=== PATIENT | female | born 1955 | race Caucasian/White ===

== ENCOUNTER 2020-01-01 11:51 | Outpatient (CLI) | payer BC ==
[2020-01-01] MEDS ORDERED: IOVERSOL 320 100 ML VIAL IVP ONE (12:13)
[2020-01-01] MEDS ORDERED: IOVERSOL 320 50 ML VIAL ONE (12:13)
[2020-01-01 12:40] LABS: BASOPHILS % (AUTO) 0.5 %; EOSINOPHILS # (AUTO) 0.3 10^3/uL (0.0-0.7); EOSINOPHILS % (AUTO) 3.3 %; HGB - HEMOGLOBIN 12.9 g/dL (12.0-16.0); LYMPHOCYTES # (AUTO) 1.2 10^3/uL (1.5-3.5); LYMPHOCYTES % (AUTO) 15.8 %; MEAN CORPUSCULAR HEMOGLOBIN 32.3 pg (27.0-31.0); MEAN CORPUSCULAR HGB CONC 33.2 g/dL (32.0-36.0); MEAN CORPUSCULAR VOLUME 97.2 fL (81.0-99.0); MEAN PLATELET VOLUME 8.6 fL (7.9-10.8); MONOCYTES # (AUTO) 0.6 10^3/uL (0.0-1.0); MONOCYTES % (AUTO) 7.5 %; NEUTROPHILS # (AUTO) 5.7 10^3/uL (1.5-6.6); NEUTROPHILS % (AUTO) 72.6 %; PLT - PLATELET COUNT 233 10^3/uL (130-450); RED BLOOD COUNT 3.99 10^6/uL (4.20-5.40); RED CELL DISTRIBUTION WIDTH 13.2 % (12.0-15.0); WHITE BLOOD COUNT 7.8 x10^3/uL (4.8-10.8)
[2020-01-01 12:53] LABS: ALBUMIN 4.3 g/dL (3.2-5.5); ALBUMIN/GLOBULIN RATIO 1.8 (1.0-2.2); BILIRUBIN,TOTAL 0.7 mg/dL (0.2-1.0); CALCIUM 8.7 mg/dL (8.5-10.3); CREATININE 0.9 mg/dL (0.4-1.0); TOTAL PROTEIN 6.7 g/dL (6.7-8.2)
--- NOTE | 2020-01-01 14:02 | CT Report ---
PROCEDURE: Abdomen/Pelvis W INDICATIONS: ABD PAIN, LLQ CONTRAST: IV CONTRAST: Optiray 320 ml: 100 PO CONTRAST: Optiray 320 ml50 TECHNIQUE: After the administration of oral and intravenous contrast, 5 mm thick sections acquired from the diap hragms to the symphysis. 5 mm thick coronal and sagittal reformats were acquired. For radiation dos e reduction, the following was used: automated exposure control, adjustment of mA and/or kV accordin g to patient size. COMPARISON: None. FINDINGS: Image quality: Excellent. ABDOMEN: Lung bases: Lung bases are clear. Heart size is normal. Solid organs: There is diffuse moderate to severe hepatic steatosis. There is a suspected hemangioma at the lateral aspect of the right hepatic lobe measuring approximately 3.5 cm with peripheral contra st pooling typical of hemangioma. No additional hepatic mass. The gallbladder and spleen are unremark able. Pancreas is within normal limits. Kidneys and adrenal glands are normal in appearance. No hydro ureter or hydronephrosis. Peritoneum and bowel: No abnormally dilated or thickened loops of bowel. Numerous distal descending c olonic and sigmoid colonic diverticula. No convincing focus of inflammatory change in the sigmoid col on to indicate diverticulitis. No inflammatory changes elsewhere in the abdomen. Nodes and vessels: No retroperitoneal or mesenteric adenopathy by size criteria. Aorta and inferior vena cava are normal in size. PELVIS: Genitourinary: Bladder wall thickness is normal. Status post hysterectomy. Numerous ovarian vein ph leboliths present. Miscellaneous: No inguinal hernias or adenopathy. Bones: No suspicious bony lesions. No vertebral body compression fractures. Degenerative changes in the lumbar spine worst at L4-L5. IMPRESSION: No acute finding to explain symptoms. Numerous sigmoid colonic diverticula with no definitive evidenc e of diverticulitis currently. If symptoms persist or worsen, follow-up examination would be recommen ded, as initial CT examination the setting of early diverticulitis can be negative. Reviewed by: Fernando Hardy MD on 01/01/2020 2:00 PM PDT Approved by: Fernando Hardy MD on 01/01/2020 2:00 PM PDT Station ID: [id number]
== END 2020-01-01 11:52 | disposition home or self-care (01) ==
LOC: DI 11:51
PROVIDERS: ATTEND Physician Assistant
DX: K57.30 Diverticulosis of large intestine without perforation or abscess without bleeding (principal); R10.32 Left lower quadrant pain
CPT/HCPCS: 36415; 74177; 80053; 85025; Q9967

== ENCOUNTER 2020-02-14 08:24 | Emergency (ER) | payer BC ==
--- NOTE | 2020-02-14 09:04 | ED Physician Documentation ---
PD HPI ABD PAIN - Stated complaint Stated Complaint: GI SYMPTOMS SENT BY - Chief complaint Chief Complaint: Abd Pain - History obtained from History obtained from: Patient - History of Present Illness Timing - onset: Enter time (0200), Last night Timing - duration: Hours Timing - details: Abrupt onset, Still present Quality: Aching, Sharp, Pain Location: LLQ Radiation: Other (anus) Improved by: Laying still Worsened by: Moving, Position, Palpation Associated symptoms: Nausea, Diarrhea, Constipation Similar symptoms before: Diagnosis (diverticulitis suspected) Recently seen: Clinic - Additional information Additional information: 64-year-old previously well female with a family history of diverticulitis with has developed left lower quadrant abdominal pain. She had this pain at the beginning of December and had a CT scan done at that time which did not demonstrate any acute inflammation but demonstrated multiple diverticula. Her symptoms then resolved. She has worse symptoms today. She states that she has been alternating between constipation and diarrhea and that 2 to 3 days ago she had some inkling of this pain and then at 2:00 in the morning the pain has worsened and persisted. She is uncomfortable with moving around and with palpation. She feels that the symptoms are between the ureter and the bladder and radiated into the anus. Review of Systems Constitutional: reports: Chills, Myalgias. denies: Fever Eyes: denies: Decreased vision Ears: denies: Ear pain Nose: denies: Rhinorrhea / runny nose, Congestion Throat: denies: Sore throat Cardiac: denies: Chest pain / pressure, Palpitations Respiratory: denies: Dyspnea, Cough GI: reports: Abdominal Pain, Nausea, Constipation, Diarrhea. denies: Vomiting : denies: Dysuria, Frequency PD PAST MEDICAL HISTORY - Past Medical History Past Medical History: Yes Cardiovascular: None Respiratory: None Neuro: None Endocrine/Autoimmune: None GI: None MEDICAL CLERICAL ASSISTANT: None : None HEENT: None Psych: None Musculoskeletal: None Derm: None - Past Surgical History Past Surgical History: Yes /MEDICAL CLERICAL ASSISTANT: section - Present Medications Home Medications: Ambulatory Orders Medication Instructions Recorded Confirmed Ciprofloxacin HCl [Cipro] 500 mg PO BID #14 tablet 02/14/20 metroNIDAZOLE [Flagyl] 500 mg PO BID #14 tablet 02/14/20 - Allergies Allergies/Adverse Reactions: Allergies Allergy/AdvReac Type Severity Reaction Status Date / Time Sulfa (Sulfonamide Allergy Rash Verified 02/14/20 08:45 Antibiotics) - Social History Does the pt smoke?: No Smoking Status: Never smoker PD ED PE NORMAL - Vitals Vital signs reviewed: Yes (hypertensive ) - General General: Alert and oriented X 3, No acute distress, Well developed/nourished - HEENT HEENT: Atraumatic, PERRL, EOMI - Neck Neck: Supple, no meningeal sign - Cardiac Cardiac: RRR, No murmur - Respiratory Respiratory: No respiratory distress, Clear bilaterally - Abdomen Abdomen: Normal bowel sounds, Soft, Non distended, No organomegaly, Other (LLQ pain to palpation with garding ) - Back Back: No CVA TTP, No spinal TTP - Derm Derm: Normal color, Warm and dry, No rash - Extremities Extremities: No deformity, No edema, No calf tenderness / cord - Neuro Neuro: Alert and oriented X 3, guard museum 2-12 intact, No motor deficit, No sensory deficit, Normal speech Eye Opening: Spontaneous Motor: Obeys Commands Verbal: Oriented GCS Score: 15 - Psych Psych: Normal mood, Normal affect Results - Vitals Vitals: Vital Signs - 24 hr 02/14/20 02/14/20 08:32 08:37 Temperature 36.8 C 36.8 C Heart Rate 77 77 Respiratory 16 16 Rate Blood Pressure 142/89 H 142/89 H O2 Saturation 100 100 Oxygen O2 Source Room air - Labs Labs: Laboratory Tests 02/14/20 02/14/20 02/14/20 09:00 09:00 09:07 WBC 9.3 RBC 4.25 Hgb 13.5 Hct 41.0 MCV 96.5 MCH 31.8 H MCHC 32.9 RDW 12.9 Plt Count 274 MPV 9.3 Neut # (Auto) 6.9 H Lymph # (Auto) 1.4 L [place] # (Auto) 0.9 Eos # (Auto) 0.1 Baso # (Auto) 0.0 Absolute Nucleated RBC 0.00 Nucleated RBC % 0.0 Sodium 137 Potassium 4.4 Chloride 100 L Carbon Dioxide 28 Anion Gap 9.0 BUN 15 Creatinine 1.0 Estimated GFR (MDRD) 56 L Glucose 102 H Calcium 9.6 Total Bilirubin 0.7 AST 98 H ALT 171 H Alkaline Phosphatase 95 Total Protein 7.4 Albumin 4.3 Globulin 3.1 Albumin/Globulin Ratio 1.4 Lipase 30 Urine Color LT. YELLOW Urine Clarity CLEAR Urine pH 5.5 Ur Specific [place] <=1.005 Urine Protein NEGATIVE Urine Glucose (UA) NEGATIVE Urine Ketones NEGATIVE Urine Occult Blood TRACE-INTA Urine Nitrite NEGATIVE Urine Bilirubin NEGATIVE Urine Urobilinogen 0.2 (NORMAL) Ur Leukocyte Esterase NEGATIVE Ur Microscopic Review NOT INDICATED Urine Culture Comments NOT INDICATED - Rads (name of study) abd/pel w Radiology: Prelim report reviewed (Impression: 1. Diverticulitis of the sigmoid colon. No pericolonic abscess. Follow-up colonoscopy is recommended to exclude underlying neoplasm. 2. Right hepatic lobe hemangioma 3. hepatic steatosis 4. left renal scarring.), EMP read indepedently, See rad report PD MEDICAL DECISION MAKING - ED course Complexity details: reviewed results, re-evaluated patient, considered differential, d/w patient ED course: 64-year-old female with recurrent left lower quadrant abdominal pain appears to have acute diverticulitis without abscess or perforation. She has a normal white blood cell count today she is afebrile. She will qualify for oral antibiotic treatment as an outpatient. We will place her on some Flagyl and Cipro. She has been given warning about alcohol consumption with the Flagyl and she will use ibuprofen with food or Tylenol for the pain control and she is instructed to keep her fecal stream moving Departure - Departure Disposition: 01 Home, Self Care Clinical Impression: Diverticulitis Condition: Stable Instructions: ED Diverticulitis Follow-Up: Catherine Sheppard PA [Primary Care Provider] - Prescriptions: Ciprofloxacin HCl [Cipro] 500 mg PO BID #14 tablet metroNIDAZOLE [Flagyl] 500 mg PO BID #14 tablet Forms: Activity restrictions
[2020-02-14 09:06] LABS: BASOPHILS % (AUTO) 0.4 %; EOSINOPHILS # (AUTO) 0.1 10^3/uL (0.0-0.7); EOSINOPHILS % (AUTO) 0.9 %; HGB - HEMOGLOBIN 13.5 g/dL (12.0-16.0); LYMPHOCYTES # (AUTO) 1.4 10^3/uL (1.5-3.5); LYMPHOCYTES % (AUTO) 14.5 %; MEAN CORPUSCULAR HEMOGLOBIN 31.8 pg (27.0-31.0); MEAN CORPUSCULAR HGB CONC 32.9 g/dL (32.0-36.0); MEAN CORPUSCULAR VOLUME 96.5 fL (81.0-99.0); MEAN PLATELET VOLUME 9.3 fL (7.9-10.8); MONOCYTES # (AUTO) 0.9 10^3/uL (0.0-1.0); MONOCYTES % (AUTO) 9.6 %; NEUTROPHILS # (AUTO) 6.9 10^3/uL (1.5-6.6); NEUTROPHILS % (AUTO) 74.3 %; PLT - PLATELET COUNT 274 10^3/uL (130-450); RED BLOOD COUNT 4.25 10^6/uL (4.20-5.40); RED CELL DISTRIBUTION WIDTH 12.9 % (12.0-15.0); WHITE BLOOD COUNT 9.3 x10^3/uL (4.8-10.8)
[2020-02-14 09:19] LABS: BILIRUBIN,URINE NEGATIVE (NEGATIVE); CLARITY,URINE CLEAR (CLEAR); GLUCOSE, URINE (UA) NEGATIVE (NEGATIVE); KETONES,URINE (UA) NEGATIVE (NEGATIVE); LEUKOCYTE ESTERASE, URINE NEGATIVE (NEGATIVE); NITRITE,URINE NEGATIVE (NEGATIVE); OCCULT BLOOD,URINE TRACE-INTA (NEGATIVE); PH,URINE 5.5 PH (5.0-7.5); PROTEIN,URINE NEGATIVE (NEGATIVE); UROBILINOGEN,URINE 0.2 (NORMAL) E.U./dL (NORMAL)
[2020-02-14 09:20] LABS: ALBUMIN 4.3 g/dL (3.2-5.5); ALBUMIN/GLOBULIN RATIO 1.4 (1.0-2.2); BILIRUBIN,TOTAL 0.7 mg/dL (0.2-1.0); CALCIUM 9.6 mg/dL (8.5-10.3); TOTAL PROTEIN 7.4 g/dL (6.7-8.2)
[2020-02-14] MEDS ORDERED: IOVERSOL 320 100 ML VIAL IVP ONE ×2 (09:51→10:18)
--- NOTE | 2020-02-14 10:27 | CT Report ---
PROCEDURE: Abdomen/Pelvis W INDICATIONS: LLQ pain diverticulitis suspected CONTRAST: IV CONTRAST: Optiray 320 ml: 100 PO CONTRAST: *NO PO CONTRAST TECHNIQUE: After the administration of oral and intravenous contrast, 5 mm thick sections acquired from the diap hragms to the symphysis. 5 mm thick coronal and sagittal reformats were acquired. For radiation dos e reduction, the following was used: automated exposure control, adjustment of mA and/or kV accordin g to patient size. COMPARISON: CT examination dated 01.01.20. FINDINGS: Image quality: Excellent. ABDOMEN: Lung bases: Lung bases are clear. Heart size is normal. Solid organs: Liver and spleen are normal in size. Diffusely decreased hepatic density is present, a s before. There is an avidly enhancing subcapsular 25 mm diameter focus within the right hepatic lobe laterally, as before. Gallbladder is within normal limits Biliary system is non dilated. Pancreas enhances normally. No adrenal nodules. There is moderate multifocal scarring involving the left kid ravindra as well as the inferior pole right kidney. Kidneys demonstrate otherwise normal size and enhancem ent, without hydronephrosis. Peritoneum and bowel: Stomach and small bowel are within normal limits. There is a possible normal ap pearing appendix on series 6 image 15. The colon is nondistended. There is moderate diffuse colonic s tool. There is diverticulosis of the descending and sigmoid colon. There is moderate thickening of th e mid/distal sigmoid colon, which demonstrates mild surrounding fat stranding. No pericolonic abscess . No free fluid or air. Nodes and vessels: No retroperitoneal or mesenteric adenopathy by size criteria. Aorta and inferior vena cava are normal in size. Miscellaneous: 13 mm diameter fat containing umbilical hernia. PELVIS: Genitourinary: Bladder wall thickness is normal. Miscellaneous: No inguinal hernias or adenopathy. Bones: No suspicious bony lesions. No vertebral body compression fractures. IMPRESSION: 1. Diverticulitis of the sigmoid colon. No pericolonic abscess. Follow-up colonoscopy is recommended to exclude underlying neoplasm. 2. Right hepatic lobe hemangioma. 3. Hepatic steatosis. 4. Left renal scarring. Reviewed by: Cesar Hernandez MD on 02/14/2020 10:26 AM PDT Approved by: Cesar Hernandez MD on 02/14/2020 10:26 AM PDT Station ID: [id number]
[2020-02-14 10:52] VITALS: BP 148/80
== END 2020-02-14 10:54 | disposition home or self-care (01) ==
LOC: ED 08:24
DX: K57.32 Diverticulitis of large intestine without perforation or abscess without bleeding (principal); D18.03 Hemangioma of intra-abdominal structures; K76.0 Fatty (change of) liver, not elsewhere classified
CPT/HCPCS: 36415; 74177; 80053; 81003; 83690; 85025; 99284; Q9967; 81001; 87086

== ENCOUNTER 2020-04-17 14:45 | Outpatient (CLI) | payer BC ==
[2020-04-17] MEDS ORDERED: IOVERSOL 320 100 ML VIAL IVP ONE (16:08)
[2020-04-17] MEDS ORDERED: IOVERSOL 320 50 ML VIAL PO ONE (16:09)
--- NOTE | 2020-04-17 16:31 | CT Report ---
PROCEDURE: Abdomen/Pelvis W INDICATIONS: CONSTIPATION,HEARTBURN,DIVERTICULITIS,ABD BLOATING CONTRAST: IV CONTRAST: Optiray 320 ml: 100 PO CONTRAST: Optiray 320 ml50 TECHNIQUE: After the administration of IV contrast, 5 mm thick sections acquired from the diaphragms to the symp hysis. 5 mm thick coronal and sagittal reformats were acquired. For radiation dose reduction, the f ollowing was used: automated exposure control, adjustment of mA and/or kV according to patient size. COMPARISON: CT abdomen pelvis dated 01/01/2020 and 02/14/2020. FINDINGS: Image quality: Excellent. ABDOMEN: Lung bases: Lung bases are clear. Heart size is normal. Solid organs: Hepatic steatosis. There is focal enhancement in subcapsular right lobe for example lemuel ge 20/3 measuring approximately 2.3 cm, which appears unchanged Gallbladder negative Biliary system is non dilated. Pancreas enhances normally. No adrenal nodules . No hydronephrosis. Left renal scarring and cortical atrophy. Peritoneum and bowel: Bowel loops demonstrate normal wall thickness and caliber. No free fluid or a ir. Colonic diverticulitis seen. There is questionable mural thickening involving the sigmoid colon s uggestive of early acute inflammation. No abscess. Nodes and vessels: No retroperitoneal or mesenteric adenopathy by size criteria. Aorta and inferior vena cava are normal in size. Miscellaneous: No ventral hernias. PELVIS: Genitourinary: Bladder wall thickness is normal. There are prominent presumed right-sided phlebolit hs, for example image 22/6. Miscellaneous: No inguinal hernias or adenopathy. Bones: No suspicious bony lesions. No vertebral body compression fractures. IMPRESSION: Colonic diverticulosis, with suspicion of early or low-grade acute diverticulitis involving the sigmo id colon Hepatic steatosis. Enhancing subcapsular lesion with no interval change possibly hemangioma although recommend continued surveillance with CT or ultrasound to document long-term stability. Overall, no acute abnormality Reviewed by: Cam Sevilla MD on 04/17/2020 4:30 PM PDT Approved by: Cam Sevilla MD on 04/17/2020 4:30 PM PDT Station ID: [id number]
== END 2020-04-17 14:46 | disposition home or self-care (01) ==
LOC: LAB 14:45
PROVIDERS: ATTEND Internal Medicine
DX: K59.01 Slow transit constipation (principal); R11.10 Vomiting, unspecified; R12 Heartburn; K57.92 Diverticulitis of intestine, part unspecified, without perforation or abscess without bleeding; K76.0 Fatty (change of) liver, not elsewhere classified
CPT/HCPCS: 36415; 74177; 82565